=== PATIENT | male | born 2000 | race Caucasian/White ===

== ENCOUNTER 2024-01-15 09:32 | Emergency (ER) | payer BC ==
[~2024-01-15] VITALS: Ht 167.6 cm; Wt 59.0 kg
[2024-01-15 09:48] VITALS: BP_SYST 150; PULSE 110; RESP 18; TEMP 98.8; O2SAT 99
[2024-01-15 10:49] LABS: BASOPHILS % (AUTO) 0.5 % (0.0-2.0); EOSINOPHILS % (AUTO) 0.1 % (0.0-4.0); HEMOGLOBIN 15.4 g/dL (14.0-18.0); LYMPHOCYTES # (AUTO) 1.4 K/uL (1.0-5.5); MEAN CORPUSCULAR HEMOGLOBIN 31 pg (27-31); MEAN CORPUSCULAR HGB CONC 35 % (32-36); MEAN CORPUSCULAR VOLUME 87 fL (79.0-98.0); MONOCYTES # (AUTO) 0.7 K/uL (0.0-1.0); MONOCYTES % (AUTO) 7.3 % (1.7-9.3); NEUTROPHILS # (AUTO) 7.4 K/uL (1.8-7.7); NEUTROPHILS % (AUTO) 77.1 % (40.0-70.0); PLATELET COUNT (AUTO) 280 K/uL (130-430); RED BLOOD CELL COUNT(AUTO) 5.04 MIL/uL (4.2-6.2); WHITE BLOOD COUNT (AUTO) 9.5 K/uL (4.8-10.8)
[2024-01-15 11:19] LABS: PROTHROMBIN TIME 10.9 SECS (9.5-12.5)
[2024-01-15 11:26] LABS: ANION GAP 11 (5-15); CALCIUM 9.9 mg/dL (8.4-11.0); CARBON DIOXIDE 24 mmol/L (23-29); CHLORIDE 102 mmol/L (98-107); CREATINE KINASE, TOTAL 159 U/L (39-308); CREATININE 0.78 mg/dL (0.55-1.30); GFR AFRICAN AMERICAN 160 mL/min (>90); GFR NON AFRICAN-AMERICAN 132 mL/min (>90); GLUCOSE 101 mg/dL (74-106); POTASSIUM 3.9 mmol/L (3.5-5.1); SODIUM SERUM 137 mmol/L (136-145); UREA NITROGEN, BLOOD 15 mg/dL (8-21)
[2024-01-15 12:31] LABS: ACETONE, SERUM NEGATIVE (NEGATIVE)
[2024-01-15 14:23] VITALS: BP_SYST 148; PULSE 100; RESP 16; TEMP 98.6; O2SAT 99
[2024-01-15] MEDS ORDERED: LORA-259 PO (14:26)
== END 2024-01-15 14:23 | disposition home or self-care (01) ==
LOC: SED 09:32
DX: R55 Syncope and collapse (principal); R00.0 Tachycardia, unspecified; R20.2 Paresthesia of skin
CPT/HCPCS: 36415; 70450-TC; 71045; 80048; 82009; 82550; 83605; 84484; 85025; 85610; 85730; 93005; 99285